=== PATIENT | male | born 1955 | race Hispanic/Latino ===

== ENCOUNTER 2018-04-01 16:37 | Observation (INO) | payer OTHER, SELFPAY ==
[2018-04-01] MEDS ORDERED: Cefepime 2 GM VIAL ONE (17:33)
[2018-04-01 17:43] LABS: #Eosinphils 0.2 thou/uL (0.0-0.7); #Lymphocytes 1.1 thou/uL (1.20-3.40); #Monocytes 0.6 thou/uL (0.11-0.59); %Basophils 0.2 % (0.0-1.0); %Eosinophils 1.8 % (0.0-10.0); %Lymphocytes 10.9 % (21.0-51.0); %Monocytes 6.2 % (0.0-10.0); Hemoglobin 14.6 g/dL (14.0-18.0); Mean Corpuscular HGB CONC 33.8 g/dL (32.0-36.0); Mean Corpuscular Hemoglobin 30.3 pg (27.0-31.0); Mean Corpuscular Volume 89.6 fL (78.0-98.0); Mean Platelet Volume 8.6 fL (7.4-10.4); Platelet Count 166 thou/uL (130-400); RBC Distribution Width 13.2 % (11.5-14.5); Red Blood Cell (RBC) Count 4.81 mill/uL (4.70-6.10); White Blood Cell (WBC) Count 9.9 thou/uL (4.8-10.8)
[2018-04-01 18:04] LABS: ALT (SGPT) 17 U/L (8-55); AST (SGOT) 11 U/L (5-34); Alkaline Phosphatase 85 U/L (40-150); Anion Gap 11 mmol/L (10-20); BUN (Urea Nitrogen) 17 mg/dL (8.4-25.7); Bilirubin, Total 0.5 mg/dL (0.2-1.2); Calc. Creatinine Clearance 0 mL/min (70-130); Calcium 9.1 mg/dL (7.8-10.44); Carbon Dioxide 26 mmol/L (23-31); Chloride 102 mmol/L (98-107); Estimated GFR-MDRD Greater than 90; Globulin 3.5 g/dL (2.4-3.5); Glucose 129 mg/dL (80-115); Potassium 3.6 mmol/L (3.5-5.1); Protein, Total 7.5 g/dL (5.8-8.1); Sodium 135 mmol/L (136-145)
[2018-04-01 19:09] LABS: Bilirubin Negative (Negative); Blood, Urine Negative (Negative); Clarity CLEAR (Clear); Glucose, Urine (Dipstick) Negative (Negative); Leukocyte Negative (Negative); Nitrite Negative (Negative); Protein, Urine (Dipstick) Negative (Neg-Trace); Specific Gravity, Urine 1.023 (1.002-1.036)
[2018-04-01] MEDS ORDERED: Ondansetron HCl/PF 4 MG/2 ML Vial IVP PRN (20:40)
[2018-04-01] MEDS ORDERED: Ondansetron ODT 4 MG TAB SL PRN (20:40)
[2018-04-01 21:07] VITALS: BMI 36.8
[2018-04-01] MEDS: Sodium Chloride 0.45% 1,000 ML IV SCH (21:25)
[2018-04-01] MEDS ORDERED: Acetaminophen 500 MG TAB PO PRN (21:47)
[2018-04-01 22:14] LABS: Lactic Acid 1.1 mmol/L (0.5-2.2)
[2018-04-02 03:41] LABS: #Eosinphils 0.2 thou/uL (0.0-0.7); #Lymphocytes 1.3 thou/uL (1.20-3.40); #Monocytes 0.6 thou/uL (0.11-0.59); #Neutrophils 4.8 thou/uL (1.40-6.50); %Basophils 0.1 % (0.0-1.0); %Eosinophils 2.7 % (0.0-10.0); %Lymphocytes 18.2 % (21.0-51.0); %Monocytes 8.9 % (0.0-10.0); %Neutrophils 70.1 % (42.0-75.0); Hemoglobin 13.1 g/dL (14.0-18.0); Mean Corpuscular HGB CONC 33.1 g/dL (32.0-36.0); Mean Corpuscular Volume 90.6 fL (78.0-98.0); Mean Platelet Volume 8.5 fL (7.4-10.4); Platelet Count 146 thou/uL (130-400); RBC Distribution Width 13.3 % (11.5-14.5); Red Blood Cell (RBC) Count 4.35 mill/uL (4.70-6.10); White Blood Cell (WBC) Count 6.8 thou/uL (4.8-10.8)
[2018-04-02 03:59] LABS: Anion Gap 9 mmol/L (10-20); BUN (Urea Nitrogen) 11 mg/dL (8.4-25.7); Calc. Creatinine Clearance 161 mL/min (70-130); Calcium 8.3 mg/dL (7.8-10.44); Carbon Dioxide 27 mmol/L (23-31); Chloride 107 mmol/L (98-107); Estimated GFR-MDRD Greater than 90; Glucose 103 mg/dL (80-115); Sodium 139 mmol/L (136-145)
[2018-04-02] MEDS: Sodium Chloride 0.45% 1,000 ML IV SCH (04:54)
--- NOTE | 2018-04-02 06:44 | PDOC.EVN ---
Event Note - Event Note Event Note: [id number] h&p dictation #
[2018-04-02] MEDS: Aspirin 81 mg Enteric Coated Tablet PO SCH (08:01)
[2018-04-02] MEDS: Metoprolol Tartrate 25 MG TAB PO SCH ×2 (08:01→19:59)
[2018-04-02] MEDS: Enoxaparin Sodium 30 MG/0.3 ML SYRINGE SC SCH (08:02)
--- NOTE | 2018-04-02 12:49 | PDOC.PN ---
- Subjective Encounter Start Date: 04/02/18 Encounter Start Time: 12:48 Mr. Luna was seen today in follow-up of cellulitis of the left leg.He says the redness has improved overnight. He does not have any other complaints. - Objective Resuscitation Status: Resuscitation Status FULL:Full Resuscitation MAR Reviewed: Yes Vital Signs & Weight: Vital Signs (12 hours) Temp Pulse Resp BP BP 04/02/18 11:24 97.8 F 59 L 20 158/80 H 04/02/18 07:14 98.1 F 59 L 20 137/77 04/02/18 04:10 97.9 F 58 L 20 139/75 Weight Weight 235 lb I&O: 04/01/18 04/02/18 04/03/18 06:59 06:59 06:59 Intake Total 989 Balance 989 Result Diagrams: 04/02/18 03:29 04/02/18 03:29 Phys Exam - Physical Examination HEENT: PERRLA Respiratory: no wheezing, no rales, no rhonchi, clear to auscultation bilateral Cardiovascular: RRR, no significant murmur, no rub Gastrointestinal: soft, non-tender, no distention, positive bowel sounds Musculoskeletal: pulses present, edema present erythema of the left leg to the knee joint, but no effusion Skin: no rash, normal turgor, cap refill <2 seconds Dx/Plan (1) Cellulitis of left leg Code(s): L03.116 - CELLULITIS OF LEFT LOWER LIMB Status: Acute (2) Coronary artery disease Code(s): I25.10 - ATHSCL HEART DISEASE OF [place] CORONARY ARTERY W/O ANG PCTRS Status: Chronic (3) Hypertension Code(s): I10 - ESSENTIAL (PRIMARY) HYPERTENSION Status: Chronic - Plan * Cellulitis of the Left Leg- will continue Rocephin ( he says he is NOT allergic to Penicillin). * CAD- stable * HTN- blood pressure is controlled- he has been re-started on his home medications
[2018-04-02] MEDS: cefTRIAXone\\ROCEPHIN 1 GM in Sodium Chloride 0.9% 100 ML IVPB SCH (13:53)
--- NOTE | 2018-04-02 18:37 | CON ---
DATE OF CONSULTATION: 04/02/2018 REASON FOR CONSULTATION: Left lower extremity cellulitis. HISTORY OF PRESENT ILLNESS: A 62-year-old with history of hypertension, coronary artery disease with bypass graft surgery with a left saphenous donor site who has had recurrent episodes of cellulitis, most of the time in the left leg, but also once in the right for the past few years, usually has up to 3 episodes per year. This time, he presents with a left lower extremity pain with areas of erythema and petechia ascending from the left ankle all the way to the lateral aspect of the left calf region. Some chills. No headaches, visual symptoms, sore throat, dysphagia. No cough or sputum production, no chest pain. No abdominal pain, diarrhea, no genitourinary symptoms, no joint symptoms. PAST MEDICAL HISTORY: Coronary artery disease, bypass graft surgery, recurrent cellulitis of lower extremities, hypertension. SOCIAL HISTORY: Smokes every other day. Drinks occasionally, , retired. ALLERGIES: None. The allergy to PENICILLIN is not confirmed. CURRENT MEDICATIONS: Ceftriaxone, enoxaparin, metoprolol. FAMILY HISTORY: Noncontributory. PHYSICAL EXAMINATION: VITAL SIGNS: T-max 98.4, blood pressure 116/67, pulse 58, respirations 22, O2 sat 99%. GENERAL: Appears in no distress, pleasant, oriented. HEENT: Ocular movements conjugate. Oral cavity moist. NECK: Supple, jugular vein distention. LUNGS: Clear to auscultation and percussion. HEART: Showed S1, S2, regular rate. No S3, S4. ABDOMEN: Soft, not distended or tender. No ascites. No bladder distention. EXTREMITIES: No joint inflammatory activity. Pulses are 1+ in dorsalis pedis. Stasis dermatitis and some venous stasis changes in the left lower extremity are noted, 1+ edema. NEUROLOGIC: Nonfocal including cognitive function. LABORATORY DATA: White cell count 6.8, hemoglobin 13, platelets 146 with 70% neutrophils. Sodium 139, creatinine 0.7 with a normal liver profile. CRP 6.62 , albumin 4.0. Urinalysis was normal. Microbiology, no samples are available at this time for review. I do not think patient had any cultures submitted. ASSESSMENT: Coronary artery disease with previous left lower extremity saphenectomy for a bypass graft surgery with recurrent episodes of cellulitis. DISCUSSION: The patient has not been able to regularly use compressive stockings because he was not able to obtain those that go above the knee and the one that he was able to buy cause a lot of pressure in the skin below the knee and he did not tolerate them. Therefore, he has not used them regularly. Right now, there is clear cut improvement and I would eventually probably tomorrow switch him to oral Keflex for discharge planning. Treat him for about 2 weeks and then transition to oral penicillin VK 250 mg twice daily for one year and also would advise him to either use a wrap compression device or stockings above the knee chronically. GIUSEPPE
[2018-04-02] MEDS ORDERED: Atorvastatin Calcium 40 MG TAB PO SCH (21:00)
[2018-04-02] MEDS ORDERED: Doxycycline 100 MG CAP PO SCH (21:00)
[2018-04-03 04:16] LABS: #Eosinphils 0.3 thou/uL (0.0-0.7); #Lymphocytes 1.3 thou/uL (1.20-3.40); #Monocytes 0.5 thou/uL (0.11-0.59); #Neutrophils 3.7 thou/uL (1.40-6.50); %Basophils 0.4 % (0.0-1.0); %Eosinophils 4.9 % (0.0-10.0); %Lymphocytes 21.6 % (21.0-51.0); Hemoglobin 13.5 g/dL (14.0-18.0); Mean Corpuscular HGB CONC 32.8 g/dL (32.0-36.0); Mean Corpuscular Hemoglobin 29.7 pg (27.0-31.0); Mean Corpuscular Volume 90.4 fL (78.0-98.0); Mean Platelet Volume 8.5 fL (7.4-10.4); Platelet Count 165 thou/uL (130-400); Red Blood Cell (RBC) Count 4.55 mill/uL (4.70-6.10); White Blood Cell (WBC) Count 5.8 thou/uL (4.8-10.8)
[2018-04-03 04:25] LABS: Anion Gap 10 mmol/L (10-20); BUN (Urea Nitrogen) 13 mg/dL (8.4-25.7); Calc. Creatinine Clearance 170 mL/min (70-130); Carbon Dioxide 27 mmol/L (23-31); Chloride 105 mmol/L (98-107); Estimated GFR-MDRD Greater than 90; Glucose 108 mg/dL (80-115); Sodium 138 mmol/L (136-145)
[2018-04-03] MEDS: Metoprolol Tartrate 25 MG TAB PO SCH (07:43)
[2018-04-03] MEDS: Aspirin 81 mg Enteric Coated Tablet PO SCH (07:44)
[2018-04-03] MEDS: Enoxaparin Sodium 30 MG/0.3 ML SYRINGE SC SCH (07:44)
[2018-04-03 11:51] VITALS: BP 159/76; TEMP 98.1
[2018-04-03] MEDS: cefTRIAXone\\ROCEPHIN 1 GM in Sodium Chloride 0.9% 100 ML IVPB SCH (12:54)
--- NOTE | 2018-04-03 13:20 | PRG ---
DATE OF SERVICE: 04/03/2018 SUBJECTIVE: Feeling better. Pain markedly reduced. No respiratory symptoms or abdominal pain. No diarrhea. PHYSICAL EXAMINATION: VITAL SIGNS: T-max 98.1, BP 150/76, pulse 55. GENERAL: Awake, alert, oriented. LUNGS: Clear. HEART: S1 and S2, regular rate. ABDOMEN: Soft. EXTREMITIES: Left leg with resolution of the erythema, mild swelling. LABORATORY DATA: White cell count 5.8, hemoglobin 13, platelets 165. Sodium 138, creatinine 0.66. ASSESSMENT AND DISCUSSION: Coronary artery disease, prior saphenectomy in left lower extremity and s tasis dermatitis with cellulitis, left leg. DISCUSSION: The patient is ready to be discharged with the device, going home on oral Keflex for 10 days 500 mg 4 times daily and then transition to oral penicillin 250 mg twice daily. I do not think he is truly allergic to oral penicillin. Follow up in the clinic.
--- NOTE | 2018-04-03 15:29 | PDOC.PN ---
- Subjective Encounter Start Date: 04/03/18 Encounter Start Time: 15:27 Mr. Luna was seen today in follow-up of cellulitis of the leg. He says he is feeling better. - Objective Resuscitation Status: Resuscitation Status FULL:Full Resuscitation MAR Reviewed: Yes Vital Signs & Weight: Vital Signs (12 hours) Temp Pulse Resp BP Pulse Ox 04/03/18 11:50 98.1 F 55 L 20 159/76 H 93 L 04/03/18 08:00 98.0 F 53 L 20 145/81 H 95 Weight Weight 235 lb I&O: 04/02/18 04/03/18 04/04/18 06:59 06:59 06:59 Intake Total 989 900 Balance 989 900 Result Diagrams: 04/03/18 03:38 04/03/18 03:38 Phys Exam - Physical Examination HEENT: PERRLA Respiratory: no wheezing, no rales, no rhonchi, clear to auscultation bilateral Cardiovascular: RRR, no significant murmur, no rub Gastrointestinal: soft, non-tender, no distention, positive bowel sounds Musculoskeletal: pulses present + miold erythema of the left leg, mild warmth much improved from yesterday Dx/Plan (1) Cellulitis of left leg Code(s): L03.116 - CELLULITIS OF LEFT LOWER LIMB Status: Acute (2) Coronary artery disease Code(s): I25.10 - ATHSCL HEART DISEASE OF [place] CORONARY ARTERY W/O ANG PCTRS Status: Chronic (3) Hypertension Code(s): I10 - ESSENTIAL (PRIMARY) HYPERTENSION Status: Chronic - Plan * Left Lower extremity cellulitis- ID recommendations noted * He is stable for discharge home..
--- NOTE | 2018-04-03 20:30 | DIS ---
DATE OF ADMISSION: 04/02/2018 DATE OF DISCHARGE: 04/03/2018 DISCHARGE DISPOSITION: Home. PRIMARY DISCHARGE DIAGNOSES: 1. Left lower extremity cellulitis. 2. Coronary artery disease. 3. Hypertension. DISCHARGE MEDICATIONS: Keflex 500 mg 1 p.o. q.i.d. for 10 days, followed by penicillin VK 250 mg twi ce a day for 1 year. Please make a note that the patient states that he is not allergic to penicilli n, even though this is listed in his record. He is also to continue taking Lopressor 25 mg twice a d ay; vitamin D3, 5000 units daily; Lipitor 40 mg q.p.m.; aspirin 81 mg daily; and Tylenol as needed. CODE STATUS: FULL CODE. ALLERGIES: Unknown. HOSPITAL COURSE: Mr. Luna is a pleasant 62-year-old gentleman who presented to the emergency room w ith complaints of the sudden onset of pain and swelling in the left lower extremity. He has had prob lems with cellulitis in that leg before and he has had a previous bypass with harvest of the veins fr om that leg. He was admitted and started on IV antibiotics and actually improved dramatically over t he course of the next couple of days. He was able to be transitioned to Rocephin, which he tolerated well and he was seen by Dr. Singer with Infectious Disease and it was recommended that he take Keflex for 10 days, then followed by chronic suppressive therapy with penicillin VK. The patient is to fol low up with his primary care physician in 1 week and also with Dr. Singer in approximately 2 weeks.
--- NOTE | 2018-04-04 11:12 | HP ---
CHIEF COMPLAINT: Left lower extremity redness and swelling, concerns for infection. HISTORY OF PRESENT ILLNESS: This is a 62-year-old male with a known history of coronary artery disea se, specifically CABG 4 vessels from venous graft harvested from both lower extremities. The patient also has a known history of recurrent lower extremity infections with his last episode of left lower leg swelling around his graft site diagnosed with infection, approximately 8 months ago. Patient ates that, at that point in time, he was seen by Infectious Disease specialist at [facility] and mariann. Patient reports prior similar infection of his right lower extremity, but that only happened on ce versus multiple occurrences of the left lower extremity. The patient first noticed the erythema y , encircled the area with a marker, which is what is currently visible in the wound photo. S ubsequently, there was rapid progression overnight, which includes extensive erythema surrounding the lower half of his left lower extremity. The patient subsequently came to the emergency department, and in the emergency department, he was empirically placed on vancomycin and Zosyn. The patient was subsequently requested for admission. REVIEW OF SYSTEMS: Constitutional: No fevers, no chills, no myalgias, no arthralgias, no fatigue. HEENT: No new headaches, dizziness, lightheadedness, or vision changes. Cardiovascular: Denies any chest pain, chest pressure, left-sided arm numbness, tingling. Respiratory: Denies any shortness o f breath, cough, congestion, or difficulty breathing. Gastrointestinal: Denies any nausea, abdomina l pain, or issues with diarrhea. Musculoskeletal: As described above. The remainder of the review of systems, otherwise, negative. PAST MEDICAL HISTORY: As per above includes, 1. Coronary disease, status post CABG x4 blood vessels with bilateral venous graft obtainment. 2. Status post PCI x2. 3. Hypertension. 4. Hyperlipidemia. 5. Prior cellulitis infection. HOME MEDICATIONS: The patient's home regimen currently includes atorvastatin 40 mg p.o. q.p.m., meto prolol tartrate 25 mg p.o. b.i.d., aspirin 81 mg p.o. daily, vitamin D3 5000 units p.o. daily, acetam inophen 500 mg p.o. q.6 hours p.r.n. ALLERGIES: Include PENICILLIN of unknown type. FAMILY HISTORY: The patient denies any known family history of recurrent infections, recurrent cellu litis infection. SOCIAL HISTORY: The patient is . His accompanies him at bedside today. The patient vasquez s not have any pets at home. Patient is not aware of any prolonged water exposure or any fixed sourc e or point of entry for cellulitis. Denies any alcohol, tobacco, or illicit drug use. Denies any ch anges to his home medications in the last month. PHYSICAL EXAMINATION: GENERAL: The patient is awake, alert, conversant, in no acute distress, appears to be a very poor hi storian. HEENT: Normocephalic, atraumatic. Equal ocular motions are intact. CARDIOVASCULAR: S1 and S2. No murmurs, rubs, or gallops. Pulses 2+ bilateral upper extremities. RESPIRATORY: Reasonable air movement. No conversational dyspnea. No wheezes, no rales, no rhonchi. Grossly clear to auscultation bilaterally. GASTROINTESTINAL: Positive bowel sounds. Soft, nontender to palpation. MUSCULOSKELETAL: Area of erythema noted with some swelling around that area and mild warmth when com pared to the other side of the body. Please see wound care for full details regarding the wound itse lf. LABORATORY DATA AND IMAGING: WBC 9.9, hemoglobin 14.6, hematocrit 43.1, platelets 166. Sodium 135, potassium 3.6, chloride 102, bicarbonate 11, BUN 17, creatinine 0.7, glucose 129. Lactic acid 1.4, c alcium 9.1, total bilirubin 0.5, AST 11, ALT 17, alkaline phosphatase 85. CRP 6.62, total protein 7. 5, albumin 4.0. UA is essentially bland. ASSESSMENT AND PLAN: This is a 62-year-old male presenting with left lower extremity erythema and co ncern for infection. 1. Clinically, the left lower extremity does appear to be consistent with cellulitis. Continue empi emile antibiotics. Given that the patient has recurrent episodes of this, we will consult Dr. Lucrecia zaman his opinion on continued management and antibiotic transition. Continue to monitor the patient's c ellulitis clinically. The patient already has a photo obtained. Recommended that the patient have t he area outlined with a marker. Repeat BMP, CBC. 2. History of coronary artery disease. Continue the patient on his home regimen. 3. Hypertension. Continue home regimen. 4. Hyperlipidemia. Continue home statin. 5. Diet: Cardiac. 6. Activity: As tolerated. 7. Deep venous thrombosis prophylaxis, enoxaparin. The patient is admitted now and this is discussed with the patient and his at bedside. The deb ent indicates his will be his medical decision maker if he is unable to make his own medical dec isions. The patient wishes to be a FULL CODE at this point in time.
== END 2018-04-03 16:55 | disposition home or self-care (01) ==
LOC: ERS 16:37 → T4-A 20:23 → INTOOBSV 20:23
PROVIDERS: ADMIT Internal Medicine; ATTEND Internal Medicine
DX: L03.116 Cellulitis of left lower limb (principal); I25.10 Atherosclerotic heart disease of native coronary artery without angina pectoris; I10 Essential (primary) hypertension; E78.5 Hyperlipidemia, unspecified; F17.210 Nicotine dependence, cigarettes, uncomplicated; Z79.82 Long term (current) use of aspirin; Z79.899 Other long term (current) drug therapy; Z95.1 Presence of aortocoronary bypass graft
CPT/HCPCS: 36415; 80048; 80053; 81003; 83605; 85025; 85652; 86140; 96361; 96365; 96366; 96367; 96372; G0378; J0692; J0696; J1650; J3370; J7050

== ENCOUNTER 2018-12-18 16:42 | Emergency (ER) | payer MEDICARE, SELFPAY ==
[2018-12-18 17:52] LABS: #Eosinphils 0.2 thou/uL (0.0-0.7); #Lymphocytes 0.7 thou/uL (1.20-3.40); #Monocytes 0.4 thou/uL (0.11-0.59); #Neutrophils 5.9 thou/uL (1.40-6.50); %Basophils 0.1 % (0.0-1.0); %Lymphocytes 9.9 % (21.0-51.0); %Monocytes 5.6 % (0.0-10.0); %Neutrophils 81.4 % (42.0-75.0); Hemoglobin 13.7 g/dL (14.0-18.0); Mean Corpuscular HGB CONC 33.4 g/dL (32.0-36.0); Mean Corpuscular Hemoglobin 30.1 pg (27.0-31.0); Mean Corpuscular Volume 90.1 fL (78.0-98.0); Mean Platelet Volume 8.5 fL (7.4-10.4); Platelet Count 131 thou/uL (130-400); RBC Distribution Width 12.5 % (11.5-14.5); Red Blood Cell (RBC) Count 4.55 mill/uL (4.70-6.10); White Blood Cell (WBC) Count 7.2 thou/uL (4.8-10.8)
[2018-12-18 18:13] LABS: ALT (SGPT) 18 U/L (8-55); AST (SGOT) 13 U/L (5-34); Albumin 3.8 g/dL (3.4-4.8); Alkaline Phosphatase 93 U/L (40-150); Anion Gap 12 mmol/L (10-20); BUN (Urea Nitrogen) 12 mg/dL (8.4-25.7); Bilirubin, Total 0.3 mg/dL (0.2-1.2); Calc. Creatinine Clearance 0 mL/min (70-130); Calcium 8.6 mg/dL (7.8-10.44); Carbon Dioxide 22 mmol/L (23-31); Chloride 105 mmol/L (98-107); Estimated GFR-MDRD Greater than 90; Globulin 3.2 g/dL (2.4-3.5); Glucose 149 mg/dL (80-115); Potassium 3.6 mmol/L (3.5-5.1); Sodium 135 mmol/L (136-145)
--- NOTE | 2018-12-18 20:46 | ULT ---
ULTRASOUND DOPPLER DUPLEX VENOUS LEFT LOWER EXTREMITY: DATE: 12/18/2018 HISTORY: 63-year-old male with left lower extremity edema, erythema, and pain. TECHNIQUE: Grayscale, color-flow, and spectral analysis, of major veins of left lower extremity. FINDINGS: There is demonstration of blood flow with normal compressibility, of the left common femoral, profund a femoral, greater saphenous, femoral, popliteal, and posterior tibial, veins. IMPRESSION: Negative. No deep venous thrombosis of left lower extremity.
== END 2018-12-18 21:30 | disposition home or self-care (01) ==
LOC: ERS 16:42
DX: L03.116 Cellulitis of left lower limb (principal); E78.5 Hyperlipidemia, unspecified; I10 Essential (primary) hypertension; F17.210 Nicotine dependence, cigarettes, uncomplicated; Z79.82 Long term (current) use of aspirin; Z79.899 Other long term (current) drug therapy
CPT/HCPCS: 36415; 80053; 85025

== ENCOUNTER 2019-08-06 13:55 | Emergency (ER) | payer MEDICARE ==
[2019-08-06 14:43] LABS: #Eosinphils 0.1 thou/uL (0.0-0.7); #Lymphocytes 0.6 thou/uL (1.20-3.40); #Monocytes 0.7 thou/uL (0.11-0.59); #Neutrophils 5.5 thou/uL (1.40-6.50); %Basophils 0.5 % (0.0-1.0); %Eosinophils 1.4 % (0.0-10.0); %Monocytes 10.4 % (0.0-10.0); %Neutrophils 78.8 % (42.0-75.0); Hemoglobin 14.7 g/dL (14.0-18.0); Mean Corpuscular Hemoglobin 30.5 pg (27.0-31.0); Mean Corpuscular Volume 89.7 fL (78.0-98.0); Mean Platelet Volume 8.8 fL (7.4-10.4); Platelet Count 126 thou/uL (130-400); Red Blood Cell (RBC) Count 4.81 mill/uL (4.70-6.10)
[2019-08-06 15:06] LABS: ALT (SGPT) 17 U/L (8-55); AST (SGOT) 13 U/L (5-34); Albumin 4.1 g/dL (3.4-4.8); Alkaline Phosphatase 88 U/L (40-110); Anion Gap 11 mmol/L (10-20); BUN (Urea Nitrogen) 12 mg/dL (8.4-25.7); Bilirubin, Total 0.6 mg/dL (0.2-1.2); Calc. Creatinine Clearance 0 mL/min (70-130); Carbon Dioxide 27 mmol/L (23-31); Chloride 103 mmol/L (98-107); Estimated GFR-MDRD Greater than 90; Globulin 3.4 g/dL (2.4-3.5); Glucose 83 mg/dL (80-115); Potassium 3.9 mmol/L (3.5-5.1); Protein, Total 7.5 g/dL (5.8-8.1); Sodium 137 mmol/L (136-145)
[2019-08-06] MEDS ORDERED: cefTRIAXone\\ROCEPHIN 1 GM VIAL ONE (15:08)
[2019-08-06] MEDS ORDERED: Lidocaine 1% PF 5 ML VIAL ONE (15:09)
--- NOTE | 2019-08-06 15:45 | ULT ---
EXAM: Right lower extremity venous duplex ultrasound with color and spectral Doppler imaging: HISTORY: Redness and edema COMPARISON: None FINDINGS: Exam performed from the groin to the ankle including the visualized greater saphenous, common femoral , superficial femoral, profunda femoral, popliteal, trifurcation, and posterior tibial veins. There is phasic flow with normal compressibility and normal augmentation at all examined levels. No evidence for intraluminal thrombus. IMPRESSION: No evidence for deep venous thrombosis.
== END 2019-08-06 15:35 | disposition home or self-care (01) ==
LOC: ERS 13:55
DX: L03.115 Cellulitis of right lower limb (principal); E78.5 Hyperlipidemia, unspecified; E78.00 Pure hypercholesterolemia, unspecified; I10 Essential (primary) hypertension; F17.210 Nicotine dependence, cigarettes, uncomplicated; Z79.82 Long term (current) use of aspirin; Z79.899 Other long term (current) drug therapy
CPT/HCPCS: 36415; 80053; 85025; 96372; J0696; J2001

== ENCOUNTER 2024-04-06 10:01 | Outpatient (CLI) | payer MEDICARE | END 2024-04-06 10:02 | disposition home or self-care (01) | LOC: BICCT 10:01 | PROVIDERS: ATTEND Orthopaedic Surgery | DX: M17.12 Unilateral primary osteoarthritis, left knee (principal); K57.30 Diverticulosis of large intestine without perforation or abscess without bleeding; M46.1 Sacroiliitis, not elsewhere classified; I70.90 Unspecified atherosclerosis; M25.762 Osteophyte, left knee; M25.462 Effusion, left knee; M67.864 Other specified disorders of tendon, left knee; M23.42 Loose body in knee, left knee ==

== ENCOUNTER 2024-04-11 10:47 | Outpatient (CLI) | payer MEDICARE ==
[2024-04-11 12:31] LABS: Prothrombin Time 13.5 sec (12.0-14.7)
[2024-04-11 12:34] LABS: #Basophils Less than 0.03 10x3/uL (0.0-0.2); %Basophils 0.3 % (0.0-1.0); %Eosinophils 4.6 % (0.0-10.0); %Lymphocytes 15.2 % (21.0-51.0); %Monocytes 9.1 % (0.0-10.0); %Neutrophils 70.6 % (42.0-75.0); Hematocrit 43.3 % (42.0-52.0); Hemoglobin 14.7 g/dL (14.0-18.0); Mean Corpuscular HGB CONC 33.9 g/dL (32.0-36.0); Mean Corpuscular Hemoglobin 29.2 pg (27.0-31.0); Mean Corpuscular Volume 85.9 fL (78.0-98.0); Mean Platelet Volume 10.8 fL (7.4-10.4); Platelet Count 189 10x3/uL (130-400); RBC Distribution Width 13.3 % (11.5-14.5); Red Blood Cell (RBC) Count 5.04 mill/uL (4.70-6.10)
[2024-04-11 13:07] LABS: Anion Gap 11 mmol/L (10-20); BUN (Urea Nitrogen) 13 mg/dL (8.4-25.7); Calc. Creatinine Clearance 0 mL/min (70-130); Calcium 8.9 mg/dL (7.8-10.44); Carbon Dioxide 25 mmol/L (23-31); Chloride 103 mmol/L (98-107); Estimated GFR 95; Glucose 92 mg/dL (80-115); Potassium 3.8 mmol/L (3.5-5.1); Sodium 135 mmol/L (136-145)
== END 2024-04-11 10:48 | disposition home or self-care (01) ==
LOC: LABBT 10:47
PROVIDERS: ATTEND Orthopaedic Surgery
DX: Z01.818 Encounter for other preprocedural examination (principal); M17.12 Unilateral primary osteoarthritis, left knee
CPT/HCPCS: 80048; 85025; 85610; 87081; 93005; 93010

== ENCOUNTER 2024-04-18 06:42 | Day surgery (SDC) | payer MEDICARE ==
[2024-04-18] MEDS ORDERED: EPINEPHrine 1 MG/ML VIAL ONE (07:18)
[2024-04-18] MEDS ORDERED: Bupivacaine 0.25% HCL 30 ML VIAL ONE (07:18)
[2024-04-18] MEDS ORDERED: Lidocaine 2% 6 ML (Jelly) SYR ONE (07:24)
[2024-04-18] MEDS ORDERED: Dexamethasone 20 MG/5 ML VIAL ONE (07:24)
[2024-04-18] MEDS ORDERED: Lidocaine 1% PF 5 ML VIAL ONE (07:24)
[2024-04-18] MEDS ORDERED: Midazolam HCl 2 mg/2 ml Vial ONE (07:24)
[2024-04-18] MEDS ORDERED: fentaNYL PF 100 MCG/2 ML SYRINGE ONE (07:24)
[2024-04-18] MEDS ORDERED: PROPOFOL 20 ML ONE (07:24)
[2024-04-18] MEDS ORDERED: Ondansetron PF 4 MG/2 ML Vial ONE (07:24)
[2024-04-18] MEDS ORDERED: CEFAZOLIN 2 GM VIAL ONE (07:41)
[2024-04-18] MEDS ORDERED: Lidocaine 1% (PF) 30 ML VIAL ONE (07:41)
[2024-04-18] MEDS ORDERED: Sodium Chloride 0.9% 100 ML ONE (07:41)
[2024-04-18] MEDS ORDERED: methylPREDNISolone Acetate 40 mg/ml Vial ONE (07:41)
[2024-04-18] MEDS ORDERED: Tranexamic Acid 1,000 MG/10 ML VIAL ONE (07:41)
[2024-04-18] MEDS ORDERED: Vancomycin (BATCH) 1.5 GM/300 ML BAG ONE (07:43)
[2024-04-18] MEDS ORDERED: HYDROmorphone 2 MG/ML VIAL SLOW IVP PRN (07:51)
[2024-04-18] MEDS ORDERED: Ondansetron HCl/PF 4 MG/2 ML Vial IVP PRN (07:51)
[2024-04-18] MEDS ORDERED: Promethazine HCl 25 MG/ML VIAL IM PRN ×3 (07:51→14:08)
[2024-04-18] MEDS ORDERED: Bupivacaine HCl 0.5%/Epinephrine 1:200,000/PF 30 ml Vial ONE (08:00)
[2024-04-18] MEDS ORDERED: fentaNYL 50 mcg/mL 1 mL Vial SLOW IVP PRN (08:15)
[2024-04-18] MEDS ORDERED: traMADol HCl 50 MG TAB PO PRN (08:15)
[2024-04-18] MEDS ORDERED: Ondansetron PF 4 MG/2 ML Vial IVP PRN ×2 (08:15→14:08)
[2024-04-18] MEDS ORDERED: Zolpidem Tartrate 5 MG TAB PO PRN ×2 (08:15→14:08)
[2024-04-18] MEDS ORDERED: Ropivacaine 0.2% 550 ML 550 ML NERVE BLCK SCH (08:15)
[2024-04-18] MEDS ORDERED: ePHEDrine Sulfate 50 MG/10 ML VIAL ONE (08:27)
[2024-04-18] MEDS ORDERED: PHENYLEPHRINE-NS 100 MCG/ML 10 ML SYRINGE ONE ×2 (08:29→09:57)
[2024-04-18] MEDS ORDERED: HYDROmorphone 2 MG/ML VIAL ONE (08:51)
[2024-04-18] MEDS ORDERED: Glycopyrrolate 0.2 MG/ML 5 ML SYRINGE ONE (09:12)
[2024-04-18] MEDS ORDERED: HYDROmorphone 0.5 MG/0.5 ML SYRINGE ONE (11:19)
[2024-04-18] MEDS: traMADol HCl 50 MG TAB PO PRN (12:09)
[2024-04-18] MEDS: Ketorolac Tromethamine 30 MG (1 mL) VIAL IVP SCH (12:09)
[2024-04-18 12:55] VITALS: BMI 38.8
[2024-04-18] MEDS ORDERED: Acetaminophen 325 MG TAB PO PRN (14:08)
[2024-04-18] MEDS ORDERED: diphenhydrAMINE 25 MG CAP PO PRN (14:08)
[2024-04-18] MEDS: Multivitamin W/ Minerals 1 TAB PO SCH (15:02)
[2024-04-18] MEDS: Senokot S 8.6-50 MG TAB PO SCH ×2 (15:02→21:45)
[2024-04-18] MEDS: HYDROcodone/Acetaminophen 10/325 mg Tablet PO PRN ×2 (15:02→21:45)
[2024-04-18] MEDS: Ferrous Gluconate 324 MG TAB PO SCH ×2 (15:02→21:45)
[2024-04-18] MEDS: Sodium Chloride 0.9% 1,000 ML IV SCH (15:06)
[2024-04-18] MEDS: CEFAZOLIN 2 GM in Sodium Chloride 0.9% 100 ML IVPB SCH (15:45)
[2024-04-18] MEDS: Atorvastatin Calcium 40 MG TAB PO SCH (21:43)
[2024-04-18] MEDS: Metoprolol Tartrate 25 MG TAB PO SCH (21:44)
[2024-04-18] MEDS: Losartan 25 MG TAB PO SCH (21:44)
[2024-04-18] MEDS: Amlodipine 10 MG TAB PO SCH (21:44)
[2024-04-19] MEDS: FLU (Fluad Triv) TS24-25 (65UP)/MF59C/PF 45 MCG/0.5 ML Syringe IM ONE (00:44)
[2024-04-19 05:24] LABS: Hemoglobin 11.8 g/dL (14.0-18.0); Mean Corpuscular HGB CONC 33.7 g/dL (32.0-36.0); Mean Corpuscular Hemoglobin 29.9 pg (27.0-31.0); Mean Corpuscular Volume 88.6 fL (78.0-98.0); Mean Platelet Volume 10.6 fL (7.4-10.4); Platelet Count 185 10x3/uL (130-400); RBC Distribution Width 13.6 % (11.5-14.5); Red Blood Cell (RBC) Count 3.95 mill/uL (4.70-6.10)
[2024-04-19 07:58] VITALS: TEMP 97.1
[2024-04-19] MEDS: Hydrochlorothiazide 25 MG TAB PO SCH (09:36)
[2024-04-19] MEDS: Clopidogrel Bisulfate 75 MG TAB PO SCH (09:36)
[2024-04-19] MEDS: Aspirin 81 mg Enteric Coated Tablet PO SCH (09:36)
[2024-04-19] MEDS: Multivitamin W/ Minerals 1 TAB PO SCH (09:37)
[2024-04-19 11:44] VITALS: BP 104/55
== END 2024-04-19 15:30 | disposition home or self-care (01) ==
LOC: SDC 06:42 → SURG A 11:41 → SDC 04-19 15:30
PROVIDERS: ATTEND Orthopaedic Surgery
PROC: 0S9C3ZZ Drainage of Right Knee Joint, Percutaneous Approach (ICD-10-PCS; principal; 2024-04-18)
PROC: 0SRD0JZ Replacement of Left Knee Joint with Synthetic Substitute, Open Approach (ICD-10-PCS; 2024-04-18)
PROC: 3E0T3BZ Introduction of Anesthetic Agent into Peripheral Nerves and Plexi, Percutaneous Approach (ICD-10-PCS; 2024-04-18)
PROC: 3E0T3BZ Introduction of Anesthetic Agent into Peripheral Nerves and Plexi, Percutaneous Approach (ICD-10-PCS; 2024-04-18)
DX: M17.12 Unilateral primary osteoarthritis, left knee (principal); E78.5 Hyperlipidemia, unspecified; I10 Essential (primary) hypertension; M19.90 Unspecified osteoarthritis, unspecified site; I25.10 Atherosclerotic heart disease of native coronary artery without angina pectoris; Z98.890 Other specified postprocedural states; Z95.1 Presence of aortocoronary bypass graft
CPT/HCPCS: 20610; 27447; 64448; 73560; 85027; 97110 ×2; 97116 ×2; A4306; C1713; C1776; C1889; J0171; J0665; J1010; J1100; J1885 ×2; J2250; J2405; J2704; J2795; J3370; J7030; 36415

== ENCOUNTER 2025-02-06 09:32 | Outpatient (CLI) | payer MEDICARE ==
[2025-02-06 10:28] LABS: #Basophils Less than 0.03 10x3/uL (0.0-0.2); #Eosinophils 0.29 10x3/uL (0.0-0.7); #Monocytes 0.49 10x3/uL (0.11-0.59); #Neutrophils 5.49 10x3/uL (1.40-6.50); %Basophils 0.3 % (0.0-1.0); %Eosinophils 4.0 % (0.0-10.0); %Lymphocytes 13.2 % (21.0-51.0); %Monocytes 6.7 % (0.0-10.0); %Neutrophils 75.4 % (42.0-75.0); Hematocrit 44.2 % (42.0-52.0); Hemoglobin 14.5 g/dL (14.0-18.0); Mean Corpuscular Hemoglobin 28.9 pg (27.0-31.0); Mean Corpuscular Volume 88.0 fL (78.0-98.0); Platelet Count 190 10x3/uL (130-400); Red Blood Cell (RBC) Count 5.02 mill/uL (4.70-6.10); White Blood Cell (WBC) Count 7.28 10x3/uL (4.8-10.8)
[2025-02-06 10:41] LABS: INR-International Normal Ratio 1.0; Prothrombin Time 13.8 sec (12.0-14.7)
[2025-02-06 10:54] LABS: Anion Gap 14 mmol/L (10-20); BUN (Urea Nitrogen) 12 mg/dL (8.4-25.7); Calc. Creatinine Clearance 0 mL/min (70-130); Calcium 8.9 mg/dL (7.8-10.44); Carbon Dioxide 23 mmol/L (23-31); Chloride 106 mmol/L (98-107); Glucose 104 mg/dL (83-110); Potassium 4.4 mmol/L (3.5-5.1); Sodium 139 mmol/L (136-145)
== END 2025-02-06 09:33 | disposition home or self-care (01) ==
LOC: LABBT 09:32
PROVIDERS: ATTEND Orthopaedic Surgery
DX: Z01.818 Encounter for other preprocedural examination (principal); M17.11 Unilateral primary osteoarthritis, right knee
CPT/HCPCS: 80048; 85025; 85610; 87081; 93005; 93010

== ENCOUNTER 2025-02-13 05:29 | Observation (INO) | payer MEDICARE ==
[2025-02-06 09:53] VITALS: BMI 38.8
[2025-02-13] MEDS ORDERED: fentaNYL PF 100 MCG/2 ML SYRINGE ONE ×3 (06:14→09:45)
[2025-02-13] MEDS ORDERED: Tranexamic Acid 1,000 MG/10 ML VIAL ONE (06:17)
[2025-02-13] MEDS ORDERED: Vancomycin HCl 1.5 GM VIAL ONE (06:17)
[2025-02-13] MEDS ORDERED: Bupivacaine 0.25% HCL 30 ML VIAL ONE (06:22)
[2025-02-13] MEDS ORDERED: Ropivacaine 0.5% HCl/PF (150 MG/30 ML VIAL) ONE (06:33)
[2025-02-13] MEDS ORDERED: Lidocaine 1% (PF) 30 ML VIAL ONE (06:33)
[2025-02-13] MEDS ORDERED: PROPOFOL 20 ML ONE (06:56)
[2025-02-13] MEDS ORDERED: CEFAZOLIN 2 GM VIAL ONE (06:57)
[2025-02-13] MEDS ORDERED: Ropivacaine 0.2% 550 ML 550 ML NERVE BLCK SCH (07:45)
[2025-02-13] MEDS ORDERED: Ondansetron PF 4 MG/2 ML Vial IVP PRN ×2 (07:45→09:06)
[2025-02-13] MEDS ORDERED: diphenhydrAMINE 25 MG CAP PO PRN (09:06)
[2025-02-13] MEDS ORDERED: Acetaminophen 325 MG TAB PO PRN (09:06)
[2025-02-13] MEDS ORDERED: HYDROcodone/Acetaminophen 10/325 mg Tablet ONE (09:50)
[2025-02-13] MEDS ORDERED: Ketorolac Tromethamine 30 MG (1 mL) VIAL ONE (09:51)
[2025-02-13] MEDS: Ketorolac Tromethamine 30 MG (1 mL) VIAL IVP SCH (09:54)
[2025-02-13] MEDS: HYDROcodone/Acetaminophen 10/325 mg Tablet PO PRN ×2 (09:55→15:58)
[2025-02-13] MEDS: Senokot S 8.6-50 MG TAB PO SCH ×2 (12:38→20:21)
[2025-02-13] MEDS: Ezetimibe 10 MG TAB PO SCH ×2 (12:38)
[2025-02-13] MEDS: Multivitamin W/ Minerals 1 TAB PO SCH (12:39)
[2025-02-13] MEDS: Ferrous Gluconate 324 MG TAB PO SCH ×2 (12:39→20:21)
[2025-02-13] MEDS: Losartan 25 MG TAB PO SCH (20:23)
[2025-02-14 06:04] LABS: Hematocrit 34.9 % (42.0-52.0); Hemoglobin 11.5 g/dL (14.0-18.0); Mean Corpuscular Hemoglobin 29.3 pg (27.0-31.0); Mean Corpuscular Volume 89.0 fL (78.0-98.0); Platelet Count 151 10x3/uL (130-400); Red Blood Cell (RBC) Count 3.92 mill/uL (4.70-6.10); White Blood Cell (WBC) Count 11.74 10x3/uL (4.8-10.8)
[2025-02-14 06:26] VITALS: TEMP 98.2
[2025-02-14] MEDS: Aspirin 81 mg Enteric Coated Tablet PO SCH (07:52)
[2025-02-14] MEDS: Multivitamin W/ Minerals 1 TAB PO SCH (07:53)
[2025-02-14 08:07] VITALS: BP 146/58
== END 2025-02-14 10:30 | disposition home or self-care (01) ==
LOC: SDC 05:29 → SURG A 10:15 → SDC 12:17 → SURG A 12:17
PROVIDERS: ADMIT Orthopaedic Surgery; ATTEND Orthopaedic Surgery
PROC: 0SRC0JZ Replacement of Right Knee Joint with Synthetic Substitute, Open Approach (ICD-10-PCS; principal; 2025-02-13)
PROC: 3E0T3BZ Introduction of Anesthetic Agent into Peripheral Nerves and Plexi, Percutaneous Approach (ICD-10-PCS; 2025-02-13)
DX: M17.11 Unilateral primary osteoarthritis, right knee (principal); I10 Essential (primary) hypertension; I25.10 Atherosclerotic heart disease of native coronary artery without angina pectoris; E11.9 Type 2 diabetes mellitus without complications; E78.5 Hyperlipidemia, unspecified
CPT/HCPCS: 27447; 64448; 73560; 85027; 97110; 97116; 97530 ×2; A4306; C1713; C1776; C1889; J0169; J0665; J1100; J1885 ×2; J2250; J2704; J2795 ×2; J7030; 36415